=== PATIENT | female | born 1985 | race Caucasian/White ===

== ENCOUNTER → 2020-01-05 | Outpatient (CLI) | payer OTHER | LOC: ZCOL.LAB 14:49 | DX: Z53.9 Procedure and treatment not carried out, unspecified reason (principal) ==

== ENCOUNTER 2021-04-14 12:48 | Observation (INO) | payer OTHER ==
[~2021-04-14] VITALS: Ht 160 cm; Wt 72.7 kg
[2021-04-14] VITALS (8 sets, daily range): BP systolic 106–122; BP diastolic 59–66; PULSE 66–74; TEMP 98.2
[2021-04-14] MEDS ORDERED: ELMIRON 10100 MG/CA1 PO (14:37)
[2021-04-14] MEDS ORDERED: ATARAX 10MG10 MG/TAB PO (14:38)
--- NOTE | 2021-04-14 15:08 | NUR ---
Patient admitted to room 349 from [facility]. Report was obtained. Anesthesia & made aware of her arrival. Ivf per orders to Iv in [place]. Patient voided 100ml pale yellow urine. Her jewlery removed & placed in her bag. Patient to the Or with Carleen Pacu nurse. Will wait for report
--- NOTE | 2021-04-14 18:03 | NUR ---
Patient resting post op. Vitals stable on room air. Pain rating 5/10. Requesting medication one tab roxicodne per orders. Tolerated appled sauce with medication. Ice water provided. Plan of care reviewed. Will let patient rest.
--- NOTE | 2021-04-14 19:59 | NUR ---
DR ESCOBAR NOTIFIED OF PTS REQUEST FOR PAIN MEDS TO TAKE HOME. ORDER FOR NORCO 5/325MG 4 TABS. PT TO GET UP DURING THE NIGHT SEVERAL TIMES AND DRINK WATER.
--- NOTE | 2021-04-14 20:15 | NUR ---
REVIEWED PT DISCHARGE INSTRUCTIONS, QUESTIONS ANSWERED. GIVEN TAKE HOME PACK OF NORCO 5/325MG #4. PERSONAL BELONGINGS RETURNED TO PT. IV SITE TO LEFT HAND REMOVED, ANGIOCATH INTACT.
--- NOTE | 2021-04-14 20:25 | NUR ---
TAKEN VIA W/C TO PRIVATE CAR. PERSONAL BELONGINGS AND DISCHARGE INSTRUCTIONS SENT WITH PATIENT WELL THE DOUGLAS #4 TABS.
== END 2021-04-14 20:25 | disposition home or self-care (01) ==
LOC: SURG 12:48
PROVIDERS: ADMIT Urology
DX: N20.1 Calculus of ureter (principal); Z79.899 Other long term (current) drug therapy
CPT/HCPCS: C1769; G0379; J0690; J1100; J2405; J2704; J3010; J7120; Q9967

== ENCOUNTER 2021-04-17 11:17 | Day surgery (SDC) | payer OTHER ==
[~2021-04-17] VITALS: Ht 157.5 cm; Wt 73.4 kg
[2021-04-17] VITALS (11 sets, daily range): BP systolic 90–117; BP diastolic 45–63; PULSE 54–110; TEMP 012.8
[~2021-04-17 11:17] MED LIST: ATARAX 10MG10 MG/TAB PO; ELMIRON 10100 MG/CA1 PO
--- NOTE | 2021-04-17 12:15 | NUR ---
1134 PATIENT AMBULATED INTO SDC UNIT WITH STEADY GAIT. PATIENT IS ALERT AND ORIENTED X 3. CONSENT EXPLAINED AND PATIENT SIGNED. ASSESSMENT COMPLETED. PATIENT FEELS VERY WARM. LUNGS CTA. HEART SOUNDS S1S2 AND REGULAR. BOWEL SOUNDS HEARD. PEDAL PULSES +2. PATIENT AMBULATED TO BATHROOM WITH STEADY GAIT AND URINE HCG COLLECTED.
--- NOTE | 2021-04-17 12:45 | NUR ---
VITAL SIGNS OBTAINED. PATIENT'S TEMP -102.8 ORALLY. HR-104. BP 101/52. PATIENT REQUESTED TO LAY DOWN ON CART AND STATES SHE DOES NOT FEEL WELL. DR CAVAZOS IN SDC UNIT AND UPDATED ON PATIENT STATUS AND VITAL SIGNS. VERBAL ORDERS RECEIVED AND ENTERED INTO COMPUTER. LAB NOTIFIED. 1250 LAB IN ROOM AND BLOOD DRAWN. IV STARTED TO LT AC WITH 20 GAUGE PER PROTOCOL. BLOOD CULTURES DRAWN BY LAB. 1308 IV ROCEPHIN GIVEN ORDERED. LR STOPPED. IV FLUSHED WITH 20CC NS BEFORE AND AFTER ROCEPHIN GIVEN. VITAL SIGNES RECHECKED BP-118/63, HR-100, PMO810% AND TEMP-102.9.
[2021-04-17 13:05] LABS: BASO % 0.3 % (0.0-2.0); GRAN # 9.3 K/mm3 (1.4-6.5); GRAN % 84.2 % (42.2-75.2); HEMATOCRIT 40.5 % (37.0-47.0); HEMOGLOBIN 13.9 g/dl (12.5-16.0); LYMPH # 1.1 K/mm3 (1.2-3.4); LYMPH % 9.8 % (20.0-51.0); MEAN CELL VOLUME 87 fl (80.0-100.0); MEAN CORPUSCULAR HEMOGLOBIN 30 pg (27.0-31.0); MEAN CORPUSCULAR HGB CONC 34 g/dl (33.0-37.0); MEAN PLATELET VOLUME 11.7 fl (7.4-10.4); MONO # 0.6 K/mm3 (0.1-0.6); MONO % 5.3 % (1.7-9.3); PLATELET COUNT 176 K/mm3 (130-400); RED BLOOD COUNT 4.67 M/mm3 (4.10-5.30); REDCELL DISTRIBUTION WIDTH-CV 12.7 % (11.5-14.5)
[2021-04-17 13:21] LABS: CALCIUM 9.9 mg/dL (8.4-10.2); CREATININE, serum 0.73 mg/dL (0.57-1.11); POTASSIUM 3.2 mmol/L (3.5-4.5)
--- NOTE | 2021-04-17 14:40 | NUR ---
PATIENT TRANSPORTED PER CART FROM PACU TO BAY 6 ACCOMPANIED BY TOXICOLOGY SUPERVISOR. MONITORS APPLIED. PATIENT CONTINUES ON O2 AT 2 LITERS. PATIENT TALKS WITH STAFF. DENIES PROBLEMS. VERBAL REPORT RECEIVED. 1445 VSS ON 2 LITERS. PATIENT REQUESTS CELL PHONE, PATIENT GIVEN HER PHONE. PATIENT TOLERATES WATER WITHOUT PROBLEMS.
--- NOTE | 2021-04-17 15:06 | NUR ---
VSS ON 2 LITERS. PATIENT RESTING WITH EYES CLOSED. RESPONDS TO QUESTIONS ASKED. DENIES DISCOMFORT AND NAUSEA. WAITING FOR INPATIENT ROOM TO BE CLEANED.
--- NOTE | 2021-04-17 15:29 | NUR ---
O2 WAS DC'D. VSS ON ROOM AIR. PATIENT TEXTING ON PHONE. FLOOR CALLED AND ROOM CONTINUES NOT TO BE READY. PATIENT C/O'S DISCOMFORT. PATIENT GIVEN ROXICODONE ORDERED. PATIENT EATS MUFFIN AND DRINKS WATER.
--- NOTE | 2021-04-17 15:39 | NUR ---
VSS ON ROOM AIR. PATIENT TOLERATES MUFFIN WITHOUT PROBLEMS. PATIENT TALKING ON PHONE.
--- NOTE | 2021-04-17 15:52 | NUR ---
VSS ON ROOM AIR. PATIENT RESTING ON CART WITH EYES CLOSED AND EVEN RESPIRATIONS. RESPONDS TO QUESTIONS ASKED.
--- NOTE | 2021-04-17 16:08 | NUR ---
VSS ON ROOM AIR. PATIENT RESTING ON CART. RESPONDS TO TEXT MESSAGE. PATIENT STATES PAIN MED IS HELPING ALITTLE. ATTEMPTED TO CALL REPORT TO SHARMAINE MUNGUIA WILL CALL BACK.
--- NOTE | 2021-04-17 16:30 | NUR ---
RECEIVED CALL FROM SHARMAINE MUNGUIA PER PHONE, REPORT GIVEN. 1640 PATIENT TRANSPORTED PER CART FROM SDC UNIT TO ROOM 348. PATIENT AMBULATED FROM CART TO BED WITH STEADY GAIT. SHARMAINE MUNGUIA IN ROOM AND WITH PATIENT.
--- NOTE | 2021-04-17 17:06 | NUR ---
Pt. admitted to room 348. Pt. oriented to the room, including telephone and call light. Pt. medicated w/ prn morphine w/ good effect. Pt. was able to void and ambulated well. Pt. requesting dinner to be ordered, dinner requested from dining services. Call light and belongings in reach.
--- NOTE | 2021-04-17 18:30 | NUR ---
Pt. reports feeling "ok." Pt. reports relief from PRN morphine. Pt. sitting up eating dinner at this time. This RN explained to the patient this RN will be going home and weight shifter RN will take over. Pt. agreeable w/ plan of care, call light in reach.
--- NOTE | 2021-04-17 22:50 | NUR ---
Patient assessed around 2009. Complained of level 4 abdominal pain, and given PRN Roxicodone as requested for pain. Denies having any burning, pain, or discomfort with urination. Tolerating fluids well, and encouraged fluids. Denies having hematuria. Voices no questions, needs, or concerns at this time. Resting in bed with call light within reach.
--- NOTE | 2021-04-18 03:52 | NUR ---
Patient complaining of level 4 pain to abdomen. Given scheduled APAP and PRN Roxicodone for pain as requested at this time.
[2021-04-18 04:09] VITALS: BP 103/56; PULSE 62; TEMP 97.5
--- NOTE | 2021-04-18 06:36 | NUR ---
Report received from SHARMAINE Mckeon. This RN visited pt. and explained she would be her nurse again today. Pt. denies needs at this time, call light and belongings in reach.
[2021-04-18] MEDS ORDERED: PYRIDIUM 100MG100 MG PO (07:33)
[2021-04-18] MEDS ORDERED: AMOXICILLIN 8751 TAB PO (07:33)
[2021-04-18 08:12] VITALS: BP 95/62; PULSE 63; TEMP 98.1
--- NOTE | 2021-04-18 09:19 | NUR ---
Pt. discharged home. Pt. still in room waiting for her ride at this time. IV has been removed, site c/d/i. Pt. verbalized understanding of discharge instructions, agreeable w/ following up w/ urology as well as picking up prescriptions from the pharmacy and taking them as prescribed.
--- NOTE | 2021-04-18 11:34 | NUR ---
Initial visit; Patient states she is much better and thanked Reference Assistant for offering God's blessings and keeping her in Reference Assistant's prayers.
== END 2021-04-18 09:30 | disposition home or self-care (01) ==
LOC: SDCO 11:17 → SURG 16:46 → SDCO 04-18 09:30
PROVIDERS: Urology
DX: R50.9 Fever, unspecified (principal); R10.12 Left upper quadrant pain; N30.10 Interstitial cystitis (chronic) without hematuria; Z79.899 Other long term (current) drug therapy; F17.210 Nicotine dependence, cigarettes, uncomplicated
CPT/HCPCS: OP; C1769; C2617; J0696; J1170; J2270; J7120; Q9967

== ENCOUNTER → 2021-05-02 | Outpatient (CLI) | payer OTHER ==
[~2021-05-02] MED LIST changes: +AMOXICILLIN 8751 TAB PO; +PYRIDIUM 100MG100 MG PO
== END ==
LOC: COL.RAD 06:45
DX: R10.12 Left upper quadrant pain (principal)

== ENCOUNTER 2021-05-25 17:56 | Emergency (ER) | payer OTHER ==
[~2021-05-25] VITALS: Ht 160 cm; Wt 72.7 kg
[2021-05-25 19:08] VITALS: TEMP 98.6
[2021-05-25 19:49] LABS: COLLECTION METHOD CLEAN CATCH
[2021-05-25 19:53] LABS: BASO % 0.4 % (0.0-2.0); EOS # 0.1 K/mm3 (0.0-0.7); EOS % 1.9 % (0-4.0); GRAN # 3.8 K/mm3 (1.4-6.5); GRAN % 56.7 % (42.2-75.2); HEMATOCRIT 40.4 % (37.0-47.0); HEMOGLOBIN 13.7 g/dl (12.5-16.0); LYMPH # 2.3 K/mm3 (1.2-3.4); LYMPH % 34.6 % (20.0-51.0); MEAN CELL VOLUME 88 fl (80.0-100.0); MEAN CORPUSCULAR HEMOGLOBIN 30 pg (27.0-31.0); MEAN CORPUSCULAR HGB CONC 34 g/dl (33.0-37.0); MONO # 0.4 K/mm3 (0.1-0.6); MONO % 6.3 % (1.7-9.3); PLATELET COUNT 219 K/mm3 (130-400); REDCELL DISTRIBUTION WIDTH-CV 12.8 % (11.5-14.5)
[2021-05-25 19:56] LABS: PH 6 (5-8); SQUAMOUS EPITHELIAL None Seen /hpf (0-10); URINE APPEARANCE Clear (CLEAR/HAZY); URINE BACTERIA None Seen (NONE SEEN); URINE BILIRUBIN Negative (NEGATIVE); URINE BLOOD 1+ (NEGATIVE); URINE COLOR Straw (YELLOW); URINE GLUCOSE Negative (NEGATIVE); URINE KETONE Negative (NEGATIVE); URINE LEUKOCYTE ESTERASE Negative (NEGATIVE); URINE NITRATE Negative (NEGATIVE); URINE PROTEIN(semi-quant) Negative (NEGATIVE); URINE RBC 0-2 /hpf (0-2); URINE UROBILINOGEN Negative (NEGATIVE)
[2021-05-25 20:10] LABS: ALBUMIN 4.3 gm/dL (3.5-5.0); BILIRUBIN,TOTAL 0.5 mg/dL (0.2-1.2); CALCIUM 9.5 mg/dL (8.4-10.2); CREATININE, serum 0.71 mg/dL (0.57-1.11); POTASSIUM 3.9 mmol/L (3.5-4.5); TOTAL PROTEIN 7.9 gm/dL (6.2-8.1)
[2021-05-25 23:55] VITALS: BP 118/61; PULSE 88
== END 2021-05-26 | disposition short-term general hospital (02) ==
LOC: COL.ER 17:56
PROVIDERS: Physician Assistant
DX: N20.0 Calculus of kidney (principal)
CPT/HCPCS: J1170; J1885; J2270; Q9967

== ENCOUNTER → 2021-05-25 | Outpatient (CLI) | payer OTHER | LOC: COL.RAD 07:57 | DX: R10.12 Left upper quadrant pain (principal); Z87.442 Personal history of urinary calculi | CPT/HCPCS: Q9967 ==

== ENCOUNTER 2021-08-17 06:58 | Day surgery (SDC) | payer OTHER ==
[~2021-08-17] VITALS: Ht 160 cm; Wt 71.6 kg
[2021-08-17] MEDS ORDERED: PREVACID 15MG15 M1 PO (07:14)
[2021-08-17] MEDS ORDERED: CLARITIN 1010 MG/TAB PO (07:14)
[2021-08-17] MEDS ORDERED: ATARAX 25MG25 MG/TAB PO (07:15)
[2021-08-17] MEDS ORDERED: EMIRON PO (07:15)
[2021-08-17 07:39] VITALS: BP 104/63; PULSE 73; TEMP 97.7
[2021-08-17 08:50] VITALS: BP 109/73; PULSE 69; TEMP 97
--- NOTE | 2021-08-17 08:50 | NUR ---
PT TO BAY 6 VIA CART FROM ENDO LAB, WALKED TO CHAIR, GAIT STEADY, CALL LIGHT IN REACH, TAKES JUICE, NO C/O
[2021-08-17 09:05] VITALS: BP 110/66; PULSE 71
--- NOTE | 2021-08-17 09:05 | NUR ---
DR HERE TO TAlK WITH PT
[2021-08-17 09:20] VITALS: BP 120/80; PULSE 65
--- NOTE | 2021-08-17 09:20 | NUR ---
IV D'CD INTACT, REVIEWED DISCHARGE INST. WITH PT ON BOTH PROCEDURES, MODERATE SEDATION PRECAUTIONS, REVIEWED FOLLOWUP WITH PT, PT UP IN ROOM DRESSED AND DISCHARGED VIA W/C TO CAR AT 0930
== END 2021-08-17 09:30 | disposition home or self-care (01) ==
LOC: SDCO 06:58
DX: D13.1 Benign neoplasm of stomach (principal); K58.1 Irritable bowel syndrome with constipation; K29.50 Unspecified chronic gastritis without bleeding; K64.4 Residual hemorrhoidal skin tags; K92.1 Melena; K63.89 Other specified diseases of intestine; Z87.11 Personal history of peptic ulcer disease
CPT/HCPCS: J2704; J3010; J7120